=== PATIENT | female | born 1945 | race Caucasian/White ===

== ENCOUNTER 2016-07-20 11:51 | Emergency (ER) | payer OTHER, MEDICARE ==
[~2016-07-20] VITALS: Ht 160 cm; Wt 50.3 kg
[~2016-07-20 11:51] MED LIST: TERAZOL 745 GM VG
--- NOTE | 2016-07-20 12:43 | ED NECK/BACK PAIN COMPLAINT ---
History of Present Illness General Chief Complaint: Low Back Pain/Injury Stated Complaint: LOW BACK INJ Source: patient Exam Limitations: no limitations Vital Signs & Intake/Output Vital Signs & Intake/Output Vital Signs Date Time Temp Pulse Resp B/P B/P Pulse O2 O2 Flow FiO2 Mean Ox Delivery Rate 07/20 1546 98.6 76 18 143/85 98 Room Air 07/20 1354 98.8 84 20 159/81 96 Room Air 07/20 1216 97.5 88 18 148/89 96 Room Air Allergies Coded Allergies: aspirin (Severe, NOSE BLEEDS 07/20/16) meperidine (Severe, HAS A FAMILY HISTORY OF SEIZURES 07/20/16) Reconcile Medications Cyclobenzaprine HCl 10 MG TABLET 1 TAB PO QPM PRN MUSCLE RELAXOR Lisinopril 10 MG TABLET 1 TAB PO DAILY HEART (Reported) Naproxen 375 MG TABLET 1 TAB PO BID PRN PAIN with food Triage Note: PT STATESTHATT SHE STARTED WITH AN ACHE IN HER LOW BACK, WEDNESDAY AFTER MOPPING THE PAIN STARTED TO INCREASE, PAIN IS WORSE WITH MOVEMENT AND THAT TYLENOL HAS NOT BEEN HELPING . PT HAS HISTORY OF COMPRESSION FRACTURE Triage Nurses Notes Reviewed? yes Onset: Gradual Duration: constant Timing: recent history Quality/Severity: moderate Location: paraspinous muscles Radiation: none Loss of Consciousness: no loss of consciousness HPI: Patient is a 71-year-old female with a past medical history of compression fractures T7 and hypertension, OSTEOPENIA who presents to emergency room stating that 3 weeks ago she had been complaining of coryza symptoms and nonproductive coughing which she states 2 days ago that she was coughing significantly that she had acute onset of generalized low back pain. Patient states in the last 4 days the coughing has significantly improved however her back pain still persisted made worse with lumbar spine movement and ambulation. Patient denies any shortness of breath chest pain hemoptysis leg swelling lower extremity paresthesia weakness or pain saddle paresthesia or bowel bladder incontinence. Denies any abdominal pain. Patient has not taken any medications for her back pain. (JUSTINE THORNTON,JESSICA) Past History Travel History Traveled to [place] past 21 day No Medical History Any Pertinent Medical History? 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 No (JESSICA MAYEN) Review of Systems Review of Systems Constitutional: Reports: no symptoms. Eyes: Reports: no symptoms. Ears, Nose, Throat, Mouth: Reports: no symptoms. Respiratory: Reports: see HPI. Cardiovascular: Reports: no symptoms. Gastrointestinal/Abdominal: Reports: no symptoms. Musculoskeletal: Reports: see HPI, back pain, muscle pain, muscle stiffness. Skin: Reports: no symptoms. Neurological/Psychological: Reports: no symptoms. All Other Systems: Reviewed and Negative (JESSICA MAYEN) Physical Exam Physical Exam General Appearance: no apparent distress, alert, comfortable Neck: normal inspection, supple, full range of motion Comments: Well-developed well-nourished person in no acute distress HEENT: Normal EENT exam, extraocular motion intact, no nystagmus. Pupils equally round and reactive to light and accommodation. Nose is atraumatic. External auditory canal and Tympanic membranes clear. Pharynx normal. No swelling or edema. Neck: Supple, no lymphadenopathy, normal range of motion without pain or tenderness Back: Normal inspection, generalized point tenderness noted, decreased active range of motion Cardiovascular: Regular rate and rhythms no murmurs rubs or gallops, normal JVP Respiratory: Chest nontender. No respiratory distress.breath sounds clear to auscultation bilaterally Abdomen: Soft, nontender nondistended, no appreciable organomegaly. Normal bowel sounds. No ascites Extremity: No edema, no calf tenderness to palpation, normal and equal pulses. Bilateral lower extremity myotomes dermatomes DTRs intact Neuro: Alert oriented x3, motor sensory normal, Skin: No appreciable rash on exposed skin, skin is warm and dry. Psych: Mood and affect is normal, memory and judgment is normal. (JESSICA MAYEN) Progress Differential Diagnosis: AAA, aortic dissection, C spine injury, carotid dissection, cauda equina syn, herniated disc, myofascial strain, pyelo/UTI, sciatica, spinal cord inj, thoracic outlet syn, T/L spine injury, ureterolithiasis, BRONCHITIS, PNA Plan of Care: Orders Procedure Date/time Status EKG 07/20 1249 Active Laboratory Tests 07/20/16 1549: Lactic Acid Cancelled 07/20/16 1249: [id number]-P-[id number] Pept Cancelled, CBC w Diff Cancelled, WBC Cancelled, RBC Cancelled, Hgb Cancelled, Hct Cancelled, MCV Cancelled, MCH Cancelled, RDW Cancelled, Plt Count Cancelled, MPV Cancelled, PUBS MCHC Cancelled, Urine Color Cancelled, Urine Clarity Cancelled, Urine pH Cancelled, Ur Specific [place] Cancelled, Urine Protein Cancelled, Urine Ketones Cancelled, Urine Nitrite Cancelled, Urine Bilirubin Cancelled, Urine Urobilinogen Cancelled, Ur Leukocyte Esterase Cancelled, Ur Microscopic Cancelled, Urine Hemoglobin Cancelled, Urine Glucose Cancelled Patient currently is resting comfortably X-rays are unremarkable for acute injury Patient normal steady gait on discharge. Patient will be treated for concerns of lumbar strain no osseous injury noted on x-rays Chest x-ray unremarkable and also had significant improvement of cough prior to arrival (JUSTINE THORNTON,JESSICA) Diagnostic Imaging: Viewed by Me: Radiology Read. Radiology Impression: no acute abnormality, no fracture Comments: PATIENT: EUSEBIO ROMERO PRESENT AGE: 71 PATIENT ACCOUNT NO: [id number] : 47 LOCATION: [facility] ORDERING PHYSICIAN: JESSICA THORNTON SERVICE DATE: 07/20/16 EXAM TYPE: RAD - XRY-LUMBOSACRAL SPINE 4 VIEWS EXAMINATION: XR LUMBOSACRAL SPINE CLINICAL INFORMATION: Pain in the back after coughing. COMPARISON: None. TECHNIQUE: AP and lateral views of the lumbar spine and coned-down AP and lateral views of L5-S1 are obtained. FINDINGS: There are 5 lumbar type nonrib-bearing vertebrae. There is mild S-shaped scoliosis of the lumbar spine. Mild narrowing of the multiple intervertebral disc spaces is noted. The vertebral body heights are maintained. Alignment is maintained. Small marginal osteophytes are noted at multiple levels. There is facet arthropathy at multiple levels. Paraspinous soft tissues are unremarkable. Moderate volume stool is noted in the colon. The sacroiliac joints, symphysis pubis and visualized hip joints are unremarkable. Scattered aortic wall calcifications. The lower thoracic spine is not well evaluated. IMPRESSION: Mild scoliosis of the lumbar spine with mild changes of spondylosis. PATIENT: EUSEBIO ROMERO PRESENT AGE: 71 PATIENT ACCOUNT NO: [id number] : 47 LOCATION: [facility] ORDERING PHYSICIAN: JESSICA THORNTON SERVICE DATE: 07/20/16 EXAM TYPE: RAD - XRY-CHEST XRAY, PA AND LATERAL EXAMINATION: XR CHEST CLINICAL INFORMATION: Cough COMPARISON: None TECHNIQUE: PA and lateral views of the chest were obtained. FINDINGS: The cardiomediastinal silhouette is normal. No abnormal tracheal deviation. The lungs are mildly hyperinflated. No focal consolidation, changes of congestion or pleural effusions are seen. No pneumothorax. Minimal reverse S-shaped curvature of the thoracolumbar spine is noted. No displaced rib fractures. IMPRESSION: Mildly hyperinflated lungs. No radiographic evidence of pneumonia. No acute pulmonary process. DICTATED BY: FRANCI DENNISON MD DATE/TIME DICTATED:07/20/16 (JUSTINE THORNTON,JESSICA) Departure Departure Disposition: HOME OR SELF CARE Condition: Stable Clinical Impression Primary Impression: Low back strain Secondary Impressions: Cough Referrals: KADEN DELATORRE,BILL Jane (PCP/Family) Additional Instructions: As discussed begin icing the area directly 20 minutes every 2 hours. Begin the prescription Naprosyn for pain and inflammation. Begin a prescription of cyclobenzaprine for muscle relaxation. If no better on Wednesday follow-up with primary care doctor. Prescription [facility] waiting [facility] your [facility]. If symptoms worsen return to emergency room Departure Forms: Customer Survey General Discharge Information Prescriptions: Current Visit Scripts Naproxen 1 TAB PO BID PRN PAIN #12 TAB with food Cyclobenzaprine HCl 1 TAB PO QPM PRN MUSCLE RELAXOR #7 TAB (JESSICA MAYEN) PA/MEDICAL DOCTOR NUCLEAR MEDICINE Co-Sign Statement Statement: ED Attending supervision documentation- [X] I saw and evaluated the patient. I have also reviewed all the pertinent lab results and diagnostic results. I agree with the findings and the plan of care as documented in the PA's/MEDICAL DOCTOR NUCLEAR MEDICINE's documentation. [X] I have reviewed the ED Record and agree with the PA's/MEDICAL DOCTOR NUCLEAR MEDICINE's documentation. [] Additions or exceptions (if any) to the PAs/MEDICAL DOCTOR NUCLEAR MEDICINE's note and plan are summarized below: [] (JOHNY DELATORRE,DIANE)
[2016-07-20] MEDS ORDERED: LISINOPRIL10 M1 PO (13:44)
--- NOTE | 2016-07-20 15:09 | RADIOLOGY REPORT ---
EXAMINATION: XR CHEST CLINICAL INFORMATION: Cough COMPARISON: None TECHNIQUE: PA and lateral views of the chest were obtained. FINDINGS: The cardiomediastinal silhouette is normal. No abnormal tracheal deviation. The lungs are mildly hyperinflated. No focal consolidation, changes of congestion or pleural effusions are seen. No pneumothorax. Minimal reverse S-shaped curvature of the thoracolumbar spine is noted. No displaced rib fractures. IMPRESSION: Mildly hyperinflated lungs. No radiographic evidence of pneumonia. No acute pulmonary process.
--- NOTE | 2016-07-20 15:27 | RADIOLOGY REPORT ---
EXAMINATION: XR LUMBOSACRAL SPINE CLINICAL INFORMATION: Pain in the back after coughing. COMPARISON: None. TECHNIQUE: AP and lateral views of the lumbar spine and coned-down AP and lateral views of L5-S1 are obtained. FINDINGS: There are 5 lumbar type nonrib-bearing vertebrae. There is mild S-shaped scoliosis of the lumbar spine. Mild narrowing of the multiple intervertebral disc spaces is noted. The vertebral body heights are maintained. Alignment is maintained. Small marginal osteophytes are noted at multiple levels. There is facet arthropathy at multiple levels. Paraspinous soft tissues are unremarkable. Moderate volume stool is noted in the colon. The sacroiliac joints, symphysis pubis and visualized hip joints are unremarkable. Scattered aortic wall calcifications. The lower thoracic spine is not well evaluated. IMPRESSION: Mild scoliosis of the lumbar spine with mild changes of spondylosis.
[2016-07-20] MEDS ORDERED: NAPROXEN375 M2 PO (15:39)
[2016-07-20] MEDS ORDERED: CYCLOBENZAPRINE10 M1 PO (15:39)
[2016-07-20 15:46] VITALS: BP 143/85
== END 2016-07-20 15:46 ==
LOC: ERH 11:51
DX: S39.012A Strain of muscle, fascia and tendon of lower back, initial encounter (principal); R05 Cough; I10 Essential (primary) hypertension; X50.9XXA Other and unspecified overexertion or strenuous movements or postures, initial encounter; Y92.9 Unspecified place or not applicable; Y93.9 Activity, unspecified
CPT/HCPCS: 72110

== ENCOUNTER 2017-03-25 09:03 | Emergency (ER) | payer OTHER ==
[~2017-03-25 09:03] MED LIST changes: +CYCLOBENZAPRINE10 M1 PO; +LISINOPRIL10 M1 PO; +NAPROXEN375 M2 PO
--- NOTE | 2017-03-25 09:27 | ED UPPER/LOWER EXTREMITY COMPL ---
History of Present Illness General Chief Complaint: Lower Extremity Problems Stated Complaint: RT HIP PAIN Source: patient Exam Limitations: no limitations Vital Signs & Intake/Output Vital Signs & Intake/Output Vital Signs Date Time Temp Pulse Resp B/P B/P Pulse O2 O2 Flow FiO2 Mean Ox Delivery Rate 03/25 1145 98.0 80 20 120/70 100 Room Air 03/25 1044 98.0 72 20 113/61 100 Room Air 03/25 0909 93 122/80 96 Room Air Allergies Coded Allergies: aspirin (Severe, NOSE BLEEDS 07/20/16) meperidine (Severe, HAS A FAMILY HISTORY OF SEIZURES 07/20/16) Reconcile Medications Lisinopril 10 MG TABLET 1 TAB PO DAILY HEART (Reported) Naproxen (Naprosyn) 500 MG TABLET 1 TAB PO BID PRN PAIN/INFLAMMATION Triage Note: PT C/O RT HIP PAIN, NO KNOWN INJURY. HAS NOT BEEN ABLE TO WALK WELL. STATES SHE HAS BEEN IN BED MORE OVER THE PAST 3 DAYS. USED A MUSCLE RELAXER WHICH DID NOT HELP EITHER. Triage Nurses Notes Reviewed? yes Onset: Gradual Duration: day(s): (3) Timing: no prior history Severity: moderate Severity Numbers: 8 Pain/Injury Location: Right: Hip. Method of Injury: EXERCISE Modifying Factors: Improves With: immobilization. Worsens With: movement. HPI: Patient is a 71-year-old female presenting to the emergency department with chief complaint of right hip pain that started 3 days ago. The day before the hip pain started she was doing leg lifts for exercise. She reports this is normal for her to do. She does report history of osteopenia takes calcium supplement. Denies any falls or direct trauma. Denies numbness or tingling. Pain stays localized to the right hip and pelvis area. Denies any urinary incontinence or retention. No abdominal pain. She tried taking a leftover Flexeril tablet that she had without relief. She's been having difficult time getting around the house since this started. (Michelle Marie) Past History Travel History Traveled to [place] past 21 day No Medical History Any Pertinent Medical History? 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 No (Michelle Marie) Review of Systems Review of Systems Constitutional: Reports: no symptoms. Comments Review of systems: See HPI, All other systems negative. Constitutional, no chills fever or weight loss HEENT: No visual changes no sore throat no congestion Cardiovascular: No chest pain ,palpitation Skin, no jaundice no rashes Respiratory: No dyspnea cough sputum GI: No nausea no vomiting Muscle skeletal: no back pain, no neck pain, Neurologic: No numbness no confusion Psych: No stress anxiety Immunology: No splenectomy or history of AIDS (Michelle Marie) Physical Exam Physical Exam General Appearance: well developed/nourished, no apparent distress, alert, awake , comfortable Comments: Well-developed well-nourished person in no acute distress HEENT: Atraumatic, normocephalic Neck: Normal inspection Back: Nontender, Cardiovascular: Regular rate and rhythms no murmurs rubs or gallops Respiratory: Chest nontender. No respiratory distress.breath sounds clear to auscultation bilaterally Abdomen: Soft, nontender nondistended, no appreciable organomegaly. Normal bowel sounds. No ascites and no rebound or guarding. Extremity: No edema, no calf tenderness to palpation, normal and equal pulses. Tender to palpation over the right greater trochanter, pelvis appears stable to palpation. Pain with right hip adduction, abduction and flexion. Pain the hip with right knee flexion. Neuro: Alert oriented x3, motor sensory normal Skin: No appreciable rash on exposed skin, skin is warm and dry. Psych: Mood and affect is normal, memory and judgment is normal. (Michelle Marie) Progress Differential Diagnosis: contusion, dislocation, fracture, sprain, tendon injury Plan of Care: Current Medications Sig/Anni Start time Last Medication Dose Stop Time Status Admin Acetaminophen 1,000 MG ONCE ONE 03/25 1015 CAN (Ofirmev) 03/25 1029 N/A 1 UNIT (No Carrier) Patient feeling improved after oral Tylenol, reports that she is able to move at this point with only mild to moderate discomfort. Patient will be started on anti-inflammatories. She'll follow up with her primary care physician in the next 5-7 days or return for worsening symptoms or concerns. Diagnostic Imaging: Viewed by Me: CT Scan. Discussed w/RAD: CT Scan. (Héctor THORNTON,Michelle) Departure Departure Time of Disposition: 1144 Disposition: HOME OR SELF CARE Condition: Stable Clinical Impression Primary Impression: Hip pain Qualifiers: Laterality: right Qualified Code: M25.551 - Pain in right hip Referrals: Richard DELATORRE,Andrea Jane (PCP/Family) Additional Instructions: Follow-up with your primary care physician in the next 5-7 days. Take anti- inflammatory as prescribed. Alternate with [id number] Tylenol as directed. Ice affected area. Return for worsening symptoms or concerns. PATIENT: EUSEBIO ROMERO PRESENT AGE: 71 PATIENT ACCOUNT NO: [id number] : 47 LOCATION: [facility] ORDERING PHYSICIAN: Michelle THORNTON SERVICE DATE: 03/25/17 EXAM TYPE: CAT - CT PELVIS WO IV CONTRAST EXAMINATION: CT PELVIS WITHOUT CONTRAST CLINICAL INFORMATION: Pain on right side. Unable to bear weight. Rule out pelvis/hip fracture. COMPARISON: Lumbar spine films dated 07/20/2016 CT scan of the abdomen and pelvis dated 11/23/2011. TECHNIQUE: Helical scanning was performed with submillimeter collimation through the pelvis. Sagittal and coronal multiplanar 2-D reconstructions were obtained. DLP: 431.02 mGy-cm FINDINGS: PELVIS: Bladder partially distended and unremarkable. The patient is status post hysterectomy and presumably oophorectomy. No suspicious adnexal mass. No pelvic adenopathy or free fluid. Included small and large bowel loops unremarkable. Appendix not specifically identified. Moderate atherosclerotic calcifications of the distal abdominal aorta and iliofemoral vessels. OSSEOUS STRUCTURES: The pelvic rings are intact. Sacroiliac joints bilaterally show minimal degenerative changes and are intact. Both hip joints are intact. Pubic symphysis is intact. Enthesopathic ossification is seen at the gluteus medius insertion upon the greater trochanter. Moderate degenerative changes in the lower lumbar spine are noted with moderate degenerative disc disease at L4-L5 and mild degenerative disc disease at L5-S1. IMPRESSION: 1. Osteopenia. No acute fracture of the bony pelvis or right hip. 2. Prominent enthesopathic ossification at the tendinous insertions upon the right greater trochanter. 3. Moderate degenerative disc disease at L4-L5 and mild degenerative disc disease at L5-S1. DICTATED BY: Romina Rasheed MD DATE/TIME DICTATED:03/25/171124 GRAPHIC ENGINEER:KEV DATE/TIME TRANSCRIBED:03/25/171124 CONFIDENTIAL, DO NOT COPY WITHOUT APPROPRIATE AUTHORIZATION. <Electronically signed in Other Vendor System> SIGNED BY: Romina Rasheed MD [id number] Departure Forms: Customer Survey General Discharge Information Prescriptions: Current Visit Scripts Naproxen (Naprosyn) 1 TAB PO BID PRN PAIN/INFLAMMATION #20 TAB (Michelle Marie) PA/PATTERN AND CHAIN MAKER Co-Sign Statement Statement: ED Attending supervision documentation- [X] I saw and evaluated the patient. I have also reviewed all the pertinent lab results and diagnostic results. I agree with the findings and the plan of care as documented in the PA's/PATTERN AND CHAIN MAKER's documentation. [] I have reviewed the ED Record and agree with the PA's/PATTERN AND CHAIN MAKER's documentation. [] Additions or exceptions (if any) to the PAs/PATTERN AND CHAIN MAKER's note and plan are summarized below: [] (Jd Zayas DO)
--- NOTE | 2017-03-25 11:37 | CT SCAN REPORT ---
EXAMINATION: CT PELVIS WITHOUT CONTRAST CLINICAL INFORMATION: Pain on right side. Unable to bear weight. Rule out pelvis/hip fracture. COMPARISON: Lumbar spine films dated 07/20/2016 CT scan of the abdomen and pelvis dated 11/23/2011. TECHNIQUE: Helical scanning was performed with submillimeter collimation through the pelvis. Sagittal and coronal multiplanar 2-D reconstructions were obtained. DLP: 431.02 mGy-cm FINDINGS: PELVIS: Bladder partially distended and unremarkable. The patient is status post hysterectomy and presumably oophorectomy. No suspicious adnexal mass. No pelvic adenopathy or free fluid. Included small and large bowel loops unremarkable. Appendix not specifically identified. Moderate atherosclerotic calcifications of the distal abdominal aorta and iliofemoral vessels. OSSEOUS STRUCTURES: The pelvic rings are intact. Sacroiliac joints bilaterally show minimal degenerative changes and are intact. Both hip joints are intact. Pubic symphysis is intact. Enthesopathic ossification is seen at the gluteus medius insertion upon the greater trochanter. Moderate degenerative changes in the lower lumbar spine are noted with moderate degenerative disc disease at L4-L5 and mild degenerative disc disease at L5-S1. IMPRESSION: 1. Osteopenia. No acute fracture of the bony pelvis or right hip. 2. Prominent enthesopathic ossification at the tendinous insertions upon the right greater trochanter. 3. Moderate degenerative disc disease at L4-L5 and mild degenerative disc disease at L5-S1.
[2017-03-25 11:45] VITALS: BP 120/70
[2017-03-25] MEDS ORDERED: NAPROSYN500 M1 PO (11:45)
== END 2017-03-25 12:04 ==
LOC: ERH 09:03
DX: M25.551 Pain in right hip (principal)